=== PATIENT | female | born 2000 | race Caucasian/White ===

== ENCOUNTER 2019-08-04 10:44 | Emergency (ER) | payer OTHER ==
[~2019-08-04] VITALS: Ht 157.5 cm; Wt 49.9 kg
[2019-08-04 10:45] VITALS: BP_SYST 120
--- NOTE | 2019-08-04 10:45 | NUR ---
Patient triaged and placed in waiting room. VSS and patient appears in no acute distress at this time. Accompanied by SELF, awaiting available bed, and MD notified of need for MSE.
--- NOTE | 2019-08-04 12:07 | NUR ---
BROUGHT BACK TO BED #2 AND REPORT GIVEN TO NUSRAT
--- NOTE | 2019-08-04 12:21 | NUR ---
DR LABOY AT BEDSIDE FOR EVALAUTION
--- NOTE | 2019-08-04 12:33 | NUR ---
Pt c/o wound open s/p mastectomy. Wound clean and dry. No exudate noted.
[2019-08-04 12:50] VITALS: BP_SYST 120
--- NOTE | 2019-08-04 12:50 | NUR ---
Patient given written and verbal discharge instructions and verbalizes understanding. ER MD discussed with patient the results and treatment provided. Patient in stable condition. ID arm band removed. Rx of keflex given. Patient educated on pain management and to follow up with PMD. Pain Scale 0. Opportunity for questions provided and answered. Medication side effect fact sheet provided.
== END 2019-08-04 12:50 | disposition home or self-care (01) ==
LOC: SED 10:44
DX: T81.31XA Disruption of external operation (surgical) wound, not elsewhere classified, initial encounter (principal)
CPT/HCPCS: 99283